=== PATIENT | male | born 1980 | race Caucasian/White ===

== ENCOUNTER 2018-01-28 18:54 | Emergency (ER) | payer SELFPAY ==
[2018-01-28 19:46] LABS: Absolute Lymphocytes (CBC) 3.7 K/uL (0.7-4.9); Basophils % 0.9 % (0-1.3); Eosinophils % 0.3 % (0-4.4); Hematocrit 43.1 % (39.6-49.0); Lymphocytes % 31.1 % (15.3-44.8); MCV 91.7 fL (80-100); MPV 8.7 fL (7.6-11.3); Monocytes % 8.7 % (3.3-12.3)
[2018-01-28 19:50] LABS: Protime INR 1.04
[2018-01-28 20:06] LABS: ALT/SGPT 15 U/L (12-78); AST/SGOT 12 U/L (15-37); Albumin 5.1 g/dL (3.4-5.0); Alkaline Phosphatase 85 U/L (45-117); BUN Blood Urea Nitrogen 13 mg/dL (7-18); Bicarbonate 27 mmol/L (21-32); Bilirubin Direct 0.3 mg/dL (0-0.2); Bilirubin Total 1.1 mg/dL (0.2-1.0); Glucose Level 92 mg/dL (74-106); Potassium 3.2 mmol/L (3.5-5.1); Protein, Total 8.5 g/dL (6.4-8.2); Sodium Level 138 mmol/L (136-145)
[2018-01-29] MEDS ORDERED: POTASSIUM 25 MEQ EFFERV TAB ONE (00:47)
[2018-01-29 00:51] LABS: Barbiturates NEGATIVE (NEGATIVE); Benzodiazepines NEGATIVE (NEGATIVE); Cocaine NEGATIVE (NEGATIVE); METHAMPHETAM POSITIVE (NEGATIVE); Methadone NEGATIVE (NEGATIVE); Opiates NEGATIVE (NEGATIVE); Phencyclidine NEGATIVE (NEGATIVE); THC Cannibis POSITIVE (NEGATIVE)
[2018-01-29 01:03] LABS: Urine Blood NEGATIVE (NEG); Urine Glucose NEGATIVE (NEG); Urine Protein 1+ (NEG); Urine Specific Gravity >1.030 (1.005-1.030)
[2018-01-29 01:03] LABS: Urine Bacteria <20 /HPF (NONE SEEN); Urine Culture Reflex Order REFLEXED; Urine Mucus 1+ /HPF (NONE SEEN); Urine RBC <5 /HPF (NONE SEEN)
--- NOTE | 2018-01-29 03:07 | ER ---
Nurse's Notes [facility] Name: Jose Quinn Age: 37 yrs Sex: Male : 1980 Arrival Date: 01/28/2018 Time: 18:59 Bed 3 Private MD: Diagnosis: Major depressive disorder, recurrent;Suicidal ideations Presentation: 01/28 19:07 Presenting complaint: Patient states: he took 30 Depakote pills at around 1800. pt ak1 stated he lives with his parents, just got out of retirement and missed his [facility] appointment on 01/15 and was not able to have his medications refilled. pt stated he started a new job and could not take off work to go to [facility], pt stated his boss is "strict" and the pt did not wish to ask off to go. pt stated he had a bad day, his parents asked him to leave. Transition of care: patient was not received from another setting of care. Onset of symptoms was January 28, 2018. Risk Assessment: Do you want to hurt yourself or someone else? Patient reports no desire to harm self or others. Initial Sepsis Screen: Does the patient meet any 2 criteria? No. Patient's initial sepsis screen is negative. Does the patient have a suspected source of infection? No. Patient's initial sepsis screen is negative. Care prior to arrival: None. 19:07 Acuity: WANDER 2 ak1 19:07 Method Of Arrival: Ambulatory ak1 Triage Assessment: 19:12 General: Appears in no apparent distress. Behavior is cooperative. Pain: Denies pain. ak1 EENT: No signs and/or symptoms were reported regarding the EENT system. Neuro: Level of Consciousness is awake, alert, obeys commands, Oriented to person, place, time, situation, Stock Preparation Operator are equal bilaterally Moves all extremities. Gait is steady, Speech is normal. Cardiovascular: No deficits noted. Respiratory: No deficits noted. GI: No signs and/or symptoms were reported involving the gastrointestinal system. : No signs and/or symptoms were reported regarding the genitourinary system. Derm: No signs and/or symptoms reported regarding the dermatologic system. Musculoskeletal: No signs and/or symptoms reported regarding the musculoskeletal system. Historical: - Allergies: 19:12 No Known Allergies; ak1 - Home Meds: 19:12 Depakene Oral [Active]; Cymbalta oral oral [Active]; trazodone Oral [Active]; ak1 - PMHx: 19:12 Depression; Bipolar disorder; ak1 - PSHx: 19:12 Cholecystectomy; Eyes; ak1 - Immunization history:: Adult Immunizations unknown. - Social history:: Smoking status: Patient uses tobacco products, smokes one pack cigarettes per day. - Ebola Screening: : No symptoms or risks identified at this time. Screenin:14 Abuse screen: Denies threats or abuse. Denies injuries from another. Nutritional ak1 screening: No deficits noted. Tuberculosis screening: No symptoms or risk factors identified. Fall Risk None identified. Assessment: 19:16 Reassessment: Patient appears in no apparent distress at this time. No changes from ak1 previously documented assessment. see triage assessment. 19:19 Reassessment: poison control contacted. activated charcoal if provider wishes. watch ak1 for drowsiness, N/V, seizures, tachycardia. 4 hours post ingestion levels. file number [id number]. observation for 6 hours. 01/29 00:09 Reassessment: Pt resting with eyes closed, respirations even and unlabored, chest ea expansions even and symmetrical. No s/s of pain or discomfort noted at this time. 01:20 Reassessment: Patient appears in no apparent distress at this time. No changes from ak1 previously documented assessment. 02:28 Reassessment: Patient appears in no apparent distress at this time. No changes from ak1 previously documented assessment. pt resting with eyes closed, resp even and unlabored. [facility] screener contacted to come evaluate pt. 03:10 Reassessment: Patient and/or family updated on plan of care and expected duration. Pain ea level reassessed. Patient is alert, oriented x 3, equal unlabored respirations, skin warm/dry/pink. [facility] leather goods sales representative at bedside. 03:23 Reassessment: Patient and/or family updated on plan of care and expected duration. Pain ea level reassessed. Patient is alert, oriented x 3, equal unlabored respirations, skin warm/dry/pink. Discharge instruction given to patient, verbalized the understanding of instruction. Vital Signs: 01/28 19:06 BP 145 / 115; Pulse 75; Resp 16; Temp 98.3; Pulse Ox 100% on R/A; Weight 77.11 kg (R); ak1 Height 5 ft. 9 in. (175.26 cm) (R); Pain 0/10; 20:21 BP 124 / 90; Pulse 82; Resp 16; Pulse Ox 100% on R/A; ak1 21:22 BP 114 / 82; Pulse 79; Resp 16; Temp 98.4; Pulse Ox 100% on R/A; ak1 22:40 BP 118 / 70; Pulse 79; Resp 18; Pulse Ox 100% ; ea 01/29 00:46 BP 115 / 75; Pulse 66; Resp 16; Pulse Ox 98% on R/A; Pain 0/10; ak1 01:23 BP 107 / 85; Pulse 68; Resp 16; Pulse Ox 98% on R/A; ak1 02:30 BP 112 / 84; Pulse 65; Resp 16; Temp 98.5; Pulse Ox 99% on R/A; Pain 0/10; ak1 01/28 19:06 Body Mass Index 25.10 (77.11 kg, 175.26 cm) [facility] ED Course: 01/28 00:30 Safety Checks: Personal items have been removed. The door is open or patient has been ak1 placed in a hallway bed/chair. There are no family/friend visitors at this time Sitter present at this time. 00:30 Safety Checks: Personal items have been removed. The door is open or patient has been ak1 placed in a hallway bed/chair. There are no family/friend visitors at this time Sitter present at this time. 18:59 Patient arrived in ED. aa5 19:00 Safety Checks: Personal items have been removed. The door is open or patient has been ak1 placed in a hallway bed/chair. There are no family/friend visitors at this time Sitter present at this time. 19:02 Vinicius Guevara MD is Attending Physician. 19:06 Luiza Valenzuela, PREMA is Primary Nurse. ak1 19:06 Arm band placed on. EKG completed in triage. Results shown to MD. ak1 19:10 Triage completed. ak1 19:15 Safety Checks: Personal items have been removed. The door is open or patient has been ak1 placed in a hallway bed/chair. There are no family/friend visitors at this time Sitter present at this time. 19:15 Patient has correct armband on for positive identification. Bed in low position. Call ak1 light in reach. Side rails up X 1. Pulse ox on. NIBP on. 19:15 Inserted saline lock: 20 gauge in right antecubital area, using aseptic technique. ak1 ,using aseptic technique. placed by Aircraft Ordnance Technician Blood collected. 19:30 Safety Checks: Personal items have been removed. The door is open or patient has been ak1 placed in a hallway bed/chair. There are no family/friend visitors at this time Sitter present at this time. 19:45 Safety Checks: Personal items have been removed. The door is open or patient has been ak1 placed in a hallway bed/chair. There are no family/friend visitors at this time Sitter present at this time. 20:00 Safety Checks: Personal items have been removed. The door is open or patient has been ak1 placed in a hallway bed/chair. There are no family/friend visitors at this time Sitter present at this time. 20:15 Safety Checks: Personal items have been removed. The door is open or patient has been ak1 placed in a hallway bed/chair. There are no family/friend visitors at this time Sitter present at this time. 20:30 Safety Checks: Personal items have been removed. The door is open or patient has been ak1 placed in a hallway bed/chair. There are no family/friend visitors at this time Sitter present at this time. 20:45 Safety Checks: Personal items have been removed. The door is open or patient has been ak1 placed in a hallway bed/chair. There are no family/friend visitors at this time Sitter present at this time. 21:00 Safety Checks: Personal items have been removed. The door is open or patient has been ak1 placed in a hallway bed/chair. There are no family/friend visitors at this time Sitter present at this time. 21:15 Safety Checks: Personal items have been removed. The door is open or patient has been ak1 placed in a hallway bed/chair. There are no family/friend visitors at this time Sitter present at this time. 21:15 Safety Checks: Personal items have been removed. The door is open or patient has been ak1 placed in a hallway bed/chair. There are no family/friend visitors at this time Sitter present at this time. 21:30 Safety Checks: Personal items have been removed. The door is open or patient has been ea placed in a hallway bed/chair. There are no family/friend visitors at this time Sitter present at this time. 21:45 Safety Checks: Personal items have been removed. The door is open or patient has been ea placed in a hallway bed/chair. There are no family/friend visitors at this time Sitter present at this time. 22:00 Safety Checks: Personal items have been removed. The door is open or patient has been ea placed in a hallway bed/chair. There are no family/friend visitors at this time Sitter present at this time. 22:15 Safety Checks: Personal items have been removed. The door is open or patient has been ea placed in a hallway bed/chair. There are no family/friend visitors at this time Sitter present at this time. 22:30 Safety Checks: Personal items have been removed. The door is open or patient has been ea placed in a hallway bed/chair. There are no family/friend visitors at this time Sitter present at this time. 22:45 Safety Checks: Personal items have been removed. The door is open or patient has been ak1 placed in a hallway bed/chair. There are no family/friend visitors at this time Sitter present at this time. 23:00 Safety Checks: Personal items have been removed. The door is open or patient has been ak1 placed in a hallway bed/chair. There are no family/friend visitors at this time Sitter present at this time. 23:15 Safety Checks: Personal items have been removed. The door is open or patient has been ak1 placed in a hallway bed/chair. There are no family/friend visitors at this time Sitter present at this time. 23:30 Safety Checks: Personal items have been removed. The door is open or patient has been ak1 placed in a hallway bed/chair. There are no family/friend visitors at this time Sitter present at this time. 23:39 Urine Drug Screen Sent. ds4 23:44 Urine Microscopic Only Sent. ds4 23:44 Urine Dipstick--Ancillary (enter results) Sent. ds4 23:45 Safety Checks: Personal items have been removed. The door is open or patient has been ak1 placed in a hallway bed/chair. There are no family/friend visitors at this time Sitter present at this time. 23:55 Urine Microscopic Only Sent. ds4 23:55 Urine Drug Screen Sent. ds4 01/29 00:00 Safety Checks: Personal items have been removed. The door is open or patient has been ak1 placed in a hallway bed/chair. There are no family/friend visitors at this time Sitter present at this time. 00:15 Safety Checks: Personal items have been removed. The door is open or patient has been ak1 placed in a hallway bed/chair. There are no family/friend visitors at this time Sitter present at this time. 00:30 Safety Checks: Personal items have been removed. The door is open or patient has been ak1 placed in a hallway bed/chair. There are no family/friend visitors at this time Sitter present at this time. 00:45 Safety Checks: Personal items have been removed. The door is open or patient has been ea placed in a hallway bed/chair. There are no family/friend visitors at this time Sitter present at this time. 01:00 Safety Checks: Personal items have been removed. The door is open or patient has been ak1 placed in a hallway bed/chair. There are no family/friend visitors at this time Sitter present at this time. 01:00 Safety Checks: Personal items have been removed. The door is open or patient has been ak1 placed in a hallway bed/chair. There are no family/friend visitors at this time Sitter present at this time. 01:15 Safety Checks: Personal items have been removed. The door is open or patient has been ak1 placed in a hallway bed/chair. There are no family/friend visitors at this time Sitter present at this time. 01:30 Safety Checks: Personal items have been removed. The door is open or patient has been ak1 placed in a hallway bed/chair. There are no family/friend visitors at this time Sitter present at this time. 01:45 Safety Checks: Personal items have been removed. The door is open or patient has been ak1 placed in a hallway bed/chair. There are no family/friend visitors at this time Sitter present at this time. 02:00 Safety Checks: Personal items have been removed. The door is open or patient has been ak1 placed in a hallway bed/chair. There are no family/friend visitors at this time Sitter present at this time. 02:15 Safety Checks: Personal items have been removed. The door is open or patient has been ak1 placed in a hallway bed/chair. There are no family/friend visitors at this time Sitter present at this time. 02:30 Safety Checks: Personal items have been removed. The door is open or patient has been ak1 placed in a hallway bed/chair. There are no family/friend visitors at this time Sitter present at this time. 02:45 Safety Checks: Personal items have been removed. The door is open or patient has been ak1 placed in a hallway bed/chair. There are no family/friend visitors at this time Sitter present at this time. 02:57 Safety Checks: Personal items have been removed. The door is open or patient has been ak1 placed in a hallway bed/chair. A family member and/or friend is present and encouraged to stay. [facility] screener at bedside. Sitter present at this time. 03:25 No provider procedures requiring assistance completed. IV discontinued, intact, ea bleeding controlled, No redness/swelling at site. Pressure dressing applied. Administered Medications: 00:43 Drug: Potassium Effervescent Tablet 25 mEq Route: PO; ak1 00:43 Follow up: Response: No adverse reaction ak1 02:31 Follow up: Response: No adverse reaction ak1 Outcome: 03:07 Discharge ordered by MD. betancourt 03:26 Discharged to home ambulatory. ak1 03:26 Condition: good 03:26 Discharge instructions given to patient, Instructed on discharge instructions, follow up and referral plans. Demonstrated understanding of instructions, follow-up care. 03:27 Patient left the ED. ak1 Signatures: Keren Carbajal RN RN aa5 Michel Morris ds4 Luiza Valenzuela RN RN ak1 Shikha Argueta RN RN ea Starr, Gregory, MD MD gs Corrections: (The following items were deleted from the chart) 00:44 00:00 Safety Checks: Personal items have been removed. The door is open or patient has ak1 been placed in a hallway bed/chair. There are no family/friend visitors at this time Sitter present at this time. ak1 01:16 01:15 Safety Checks: Personal items have been removed. The door is open or patient has ea been placed in a hallway bed/chair. There are no family/friend visitors at this time Sitter present at this time. ea
--- NOTE | 2018-01-29 03:08 | EDPHYS ---
Physician Documentation [facility] Name: Jose Quinn Age: 37 yrs Sex: Male : 1980 Arrival Date: 01/28/2018 Time: 18:59 Bed 3 Private MD: ED Physician Vinicius Guevara HPI: 01/29 00:33 This 37 yrs old Male presents to ER via Ambulatory with complaints of gs suicidal ideation. 00:33 The patient presents to the emergency department with suicide ideation. Onset: The gs symptoms/episode began/occurred acutely. Associated signs and symptoms: Pertinent negatives: abdominal pain, chest pain. Severity of symptoms: At their worst the symptoms were moderate in the emergency department the symptoms are unchanged. The patient has experienced similar episodes in the past, a few times. says ingested 30 depakote tablets. Historical: - Allergies: 01/28 19:12 No Known Allergies; ak1 - Home Meds: 19:12 Depakene Oral [Active]; Cymbalta oral oral [Active]; trazodone Oral [Active]; ak1 - PMHx: 19:12 Depression; Bipolar disorder; ak1 - PSHx: 19:12 Cholecystectomy; Eyes; ak1 - Immunization history:: Adult Immunizations unknown. - Social history:: Smoking status: Patient uses tobacco products, smokes one pack cigarettes per day. - Ebola Screening: : No symptoms or risks identified at this time. ROS: 01/29 00:33 All other systems are negative. gs Exam: 00:33 Head/Face: Normocephalic, atraumatic. Eyes: Pupils equal round and reactive to light, gs extra-ocular motions intact. Lids and lashes normal. Conjunctiva and sclera are non-icteric and not injected. Cornea within normal limits. Periorbital areas with no swelling, redness, or edema. ENT: Nares patent. No nasal discharge, no septal abnormalities noted. Tympanic membranes are normal and external auditory canals are clear. Oropharynx with no redness, swelling, or masses, exudates, or evidence of obstruction, uvula midline. Mucous membranes moist. Neck: Trachea midline, no thyromegaly or masses palpated, and no cervical lymphadenopathy. Supple, full range of motion without nuchal rigidity, or vertebral point tenderness. No Meningismus. Chest/axilla: Normal chest wall appearance and motion. Nontender with no deformity. No lesions are appreciated. Cardiovascular: Regular rate and rhythm with a normal S1 and S2. No gallops, murmurs, or rubs. Normal PMI, no JVD. No pulse deficits. 00:33 Respiratory: Lungs have equal breath sounds bilaterally, clear to auscultation and percussion. No rales, rhonchi or wheezes noted. No increased work of breathing, no retractions or nasal flaring. Abdomen/GI: Soft, non-tender, with normal bowel sounds. No distension or tympany. No guarding or rebound. No evidence of tenderness throughout. Back: No spinal tenderness. No costovertebral tenderness. Full range of motion. Skin: Warm, dry with normal turgor. Normal color with no rashes, no lesions, and no evidence of cellulitis. MS/ Extremity: Pulses equal, no cyanosis. Neurovascular intact. Full, normal range of motion. Neuro: Awake and alert, GCS 15, oriented to person, place, time, and situation. Cranial nerves II-XII grossly intact. Motor strength 5/5 in all extremities. Sensory grossly intact. Cerebellar exam normal. Normal gait. 00:33 Constitutional: The patient appears alert, awake. 00:33 ECG was reviewed by the Attending Physician. 00:33 Psych: Behavior/mood is pleasant, Affect is calm, Oriented to person, place, time, gs Patient having thoughts of suicide. Judgement / Insight is impaired. Delusions/hallucinations are not present. Vital Signs: 01/28 19:06 BP 145 / 115; Pulse 75; Resp 16; Temp 98.3; Pulse Ox 100% on R/A; Weight 77.11 kg (R); ak1 Height 5 ft. 9 in. (175.26 cm) (R); Pain 0/10; 20:21 BP 124 / 90; Pulse 82; Resp 16; Pulse Ox 100% on R/A; ak1 21:22 BP 114 / 82; Pulse 79; Resp 16; Temp 98.4; Pulse Ox 100% on R/A; ak1 22:40 BP 118 / 70; Pulse 79; Resp 18; Pulse Ox 100% ; ea 01/29 00:46 BP 115 / 75; Pulse 66; Resp 16; Pulse Ox 98% on R/A; Pain 0/10; ak1 01:23 BP 107 / 85; Pulse 68; Resp 16; Pulse Ox 98% on R/A; ak1 02:30 BP 112 / 84; Pulse 65; Resp 16; Temp 98.5; Pulse Ox 99% on R/A; Pain 0/10; ak1 01/28 19:06 Body Mass Index 25.10 (77.11 kg, 175.26 cm) [facility] MDM: 01/28 19:26 Patient medically screened. 01/29 00:33 Differential diagnosis: depression, si, drug reaction. Data reviewed: vital signs, nurses notes. Response to treatment: the patient's symptoms have markedly improved after treatment, and as a result, I will discharge patient. 03:06 ED course: crisis over, not suicidal cleared by [facility] will discharge. 01/28 19:26 Order name: Depakote; Complete Time: 00: 01/28 19:26 Order name: Acetaminophen; Complete Time: 00: 01/28 19:26 Order name: Basic Metabolic Panel; Complete Time: 00: 01/28 19:26 Order name: CBC with Diff; Complete Time: 00: 01/28 19:26 Order name: ETOH Level; Complete Time: 00: 01/28 19:26 Order name: Hepatic Function; Complete Time: 00: 01/28 19:26 Order name: PT-INR; Complete Time: 00: 01/28 19:26 Order name: Salicylate; Complete Time: 00: 01/28 19:26 Order name: Urine Drug Screen; Complete Time: 03:07 01/28 19:26 Order name: EKG; Complete Time: : 01/28 23:38 Order name: Urine Microscopic Only; Complete Time: 03:07 [facility] 01/28 23:40 Order name: Urine Dipstick--Ancillary (enter results); Complete Time: 03:07 [facility] 01/29 01:24 Order name: Urine Culture [facility] 01/28 19:26 Order name: EKG - Nurse/Tech; Complete Time: 19:39 01/28 19:26 Order name: IV Saline Lock; Complete Time: 19:39 01/28 19:26 Order name: Labs collected and sent; Complete Time: 19:39 01/28 19:26 Order name: Urine Dipstick-Ancillary (obtain specimen); Complete Time: 23:38 gs EC:33 Rate is 81 beats/min. Rhythm is regular. MS interval is normal. QRS interval is normal. gs T waves are Normal. No ST changes noted. Clinical impression: Normal ECG. Interpreted by me. Administered Medications: 00:43 Drug: Potassium Effervescent Tablet 25 mEq Route: PO; ak1 00:43 Follow up: Response: No adverse reaction ak1 02:31 Follow up: Response: No adverse reaction ak1 Disposition: 01/29/18 03:07 Discharged to Home. Impression: Major depressive disorder, recurrent, Suicidal ideations. - Condition is Stable. - Discharge Instructions: Suicidal Feelings: How to Help Yourself, Major Depressive Disorder, [id number]. - Medication Reconciliation Form, Thank You Letter, Antibiotic Education, Prescription Opioid Use form. - Follow up: Private Physician; When: 2 - 3 days; Reason: Re-evaluation by your physician. Signatures: Dispatcher [employer] Luiza Osborn RN RN ak1 Vinicius Guevara MD MD Corrections: (The following items were deleted from the chart) 03:27 03:07 01/29/2018 03:07 Discharged to Home. Impression: Major depressive disorder, ak1 recurrent; Suicidal ideations. Condition is Stable. Forms are Medication Reconciliation Form, Thank You Letter, Antibiotic Education, Prescription Opioid Use. Follow up: Private Physician; When: 2 - 3 days; Reason: Re-evaluation by your physician. gs
[2018-01-29 03:47] VITALS: BP 112/84; TEMP 98.5; O2SAT 99
--- NOTE | 2018-01-29 07:19 | EKG ---
Test Date: 2018-01-28 Test Time: 19:13:08 Felting Machine Operator: JEREMIAH MEASUREMENT RESULTS: Intervals: Rate: 81 UT: 162 QRSD: 88 QT: 366 QTc: 425 Conger: P: 69 UT: 162 QRS: 15 T: 45 INTERPRETIVE STATEMENTS: Normal sinus rhythm Normal ECG Compared to ECG 11/05/2011 18:29:14 Sinus tachycardia no longer present Electronically Signed On 01-29-18 07:18:21 JIG GRINDER SET UP OPERATOR by Bradley Lagos
== END 2018-01-29 03:27 | disposition home or self-care (01) ==
LOC: ER 18:54
DX: F33.9 Major depressive disorder, recurrent, unspecified (principal); F31.9 Bipolar disorder, unspecified; F17.210 Nicotine dependence, cigarettes, uncomplicated
CPT/HCPCS: 36415; 80048; 80076; 80164; 80307; 80320; 80329; 81003; 81015; 85025; 85610; 87086; 87088; 93005; 99284

== ENCOUNTER 2020-08-15 15:50 | Emergency (ER) | payer SELFPAY ==
--- OUTSIDE RECORDS SUMMARY | 2020-08-15 15:53 | XMS REPORT | Continuity of Care Document ---
:1980 Author Organization [facility] t Address [address] [place] [address] Care Team Providers Name Role Phone Unavailable Unavailable Unavailable Problems This patient has no known problems. Allergies, Adverse Reactions, Alerts This patient has no known allergies or adverse reactions. Medications This patient has no known medications. Procedures This patient has no known procedures. Results Test Description Test Time Test Comments Results Result [facility] e Comments FINGER 1 DIGIT 2018-08-29 [facility] 07:19:[address] [id number] IMAGING REPORTPatient Name: Faizan ALCANTARAte of Service: [id number]: 37 Sex: M Order #: [id number] Room: QERDOB: 1980 X-Ray Number: [id number] Record Number: [id number] Hospital Number: [id number] Physician: Larry CHANDLERing Physician: KATHERINE CARDONA middle finger 3 views 08/29/2018HISTORY: Laceration to the fingerCOMPARISON: NoneThere is laceration to the tip of the middle finger. No retained radiopaqueforeign bodies. Soft tissue swelling is suspected to a mild degree.Bony structures are normal.No other acute findings.IMPRESSION: No acute bony process.The study was performed on an emergent basis and preliminary report faxedto the Emergency Department by the [facility] service nearthe time of the exam.Electronically Signed By: Markos Shearer M.D., 08/29/2018 7:17 AMLeloy authenticated by JESSI SHER 2018-08-29 07:17:21
--- NOTE | 2020-08-15 18:06 | RAD REPORT ---
EXAM DESCRIPTION: RAD - Chest Single View - 08/15/2020 5:59 pm CLINICAL HISTORY: cough, chest pain Chest pain. COMPARISON: ABDOMEN ACUTE SERIES dated 09/01/2013; CHEST PA AND LAT 2 VIEW dated 08/25/2013 FINDINGS: Portable technique limits examination quality. The lungs are grossly clear. The heart is normal in size. No displaced fractures. IMPRESSION: No acute intrathoracic process suspected.
--- NOTE | 2020-08-15 19:09 | EDPHYS ---
Physician Documentation [facility] Name: Jose Quinn Age: 39 yrs Sex: Male : 1980 Arrival Date: 08/15/2020 Time: 16:01 Bed 3 Private MD: ED Physician Ramos Mchugh HPI: 08/15 16:23 This 39 yrs old Male presents to ER via Ambulatory with complaints of Cough, jmm Fever. 16:23 The patient or guardian reports cough. Onset: The symptoms/episode began/occurred jmm gradually, 3 day(s) ago. Modifying factors: The symptoms are alleviated by nothing, the symptoms are aggravated by nothing. Associated signs and symptoms: Pertinent positives: nausea, congestion. It is unknown whether or not the patient has had similar symptoms in the past. This is a 39 year old male with no chronic medical conditions that presents to the ED with complaints of cough, congestion, right sided chest pain with cough. Children have similar symptoms. Patient states having a tmax of 102F yesterday. . Historical: - Allergies: 16:22 No Known Allergies; ca1 - Home Meds: 16:22 Cymbalta Oral [Active]; Trazodone Oral [Active]; ca1 - PMHx: 16:22 Bipolar disorder; Depression; ca1 - PSHx: 16:22 Cholecystectomy; Eyes; ca1 - Immunization history:: Client reports having NOT received the Covid vaccine. Flu vaccine is not up to date. - Social history:: Smoking status: Patient reports the use of cigarette tobacco products, smokes one-half pack cigarettes per day. ROS: 16:23 Constitutional: Positive for fever. jmm 16:23 Respiratory: Positive for cough. 16:23 All other systems are negative. Exam: 16:23 Constitutional: This is a well developed, well nourished patient who is awake, alert, jmm and in no acute distress. Head/Face: atraumatic. Eyes: EOMI, no conjunctival erythema appreciated ENT: Moist Mucus Membranes Neck: Trachea midline, Supple Chest/axilla: Normal chest wall appearance and motion. Cardiovascular: Regular rate and rhythm. No edema appreciated Respiratory: Normal respirations, no respiratory distress appreciated Abdomen/GI: Non distended, soft Back: Normal ROM Skin: General appearance color normal MS/ Extremity: Moves all extremities, no obvious deformities appreciated, no edema noted to the lower extremities Neuro: Awake and alert, normal gait Psych: Behavior is normal, Mood is normal, Patient is cooperative and pleasant Vital Signs: 16:15 BP 113 / 88; Pulse 92; Resp 18 S; Temp 97.5(TE); Pulse Ox 99% on R/A; Weight 81.65 kg ca1 (R); Height 5 ft. 9 in. (175.26 cm) (R); Pain 0/10; 17:05 BP 112 / 88; Pulse 82; Resp 18; Pulse Ox 99% on R/A; ld1 18:06 BP 113 / 97; Pulse 86; Resp 18; Pulse Ox 100% on R/A; ld1 19:20 BP 110 / 88; Pulse 80; Resp 18; Pulse Ox 98% ; ea 16:15 Body Mass Index 26.58 (81.65 kg, 175.26 cm) ca1 MDM: 17:04 Patient medically screened. [facility] 19:08 Data reviewed: vital signs, nurses notes. Data interpreted:. Counseling: I had a jmeleazar detailed discussion with the patient and/or guardian regarding: the historical points, exam findings, and any diagnostic results supporting the discharge/admit diagnosis, lab results, radiology results, the need for outpatient follow up, to return to the emergency department if symptoms worsen or persist or if there are any questions or concerns that arise at home. ED course: Patient is alert and non toxic in appearance in the ED. No signs of resp distress. Patient advised to follow up with pcp and otherwise given strict return precautions. patient understood and agrees with the plan of care. . 08/15 16:23 Order name: Flu; Complete Time: 17:31 ca1 08/15 17:16 Order name: Chest Single View XRAY; Complete Time: 18:11 [facility] 08/15 18:56 Order name: SARS-COV-2 RT PCR; Complete Time: 18:57 EDMS Administered Medications: 19:16 Drug: Decadron (dexamethasone) 10 mg Route: IM; Site: left deltoid; ea 19:29 Follow up: Response: Medication administered at discharge. rr5 Disposition: 08/16 07:28 Co-signature as Attending Physician, Ramos Mchugh MD I agree with the assessment and kdr plan of care. Disposition: 08/15/20 19:09 Discharged to Home. Impression: Acute upper respiratory infection, unspecified. - Condition is Stable. - Discharge Instructions: Upper Respiratory Infection, Adult. - Prescriptions for promethazine- DM - take 5 milliliter by ORAL route every 4 hours; 120 milliliter. Medrol (Max) 4 mg Oral Tablets, Dose Pack - take 1 tablet by ORAL route as directed - follow package instructions; 1 packet. Albuterol Sulfate 90 mcg/actuation - inhale 1-2 puff by INHALATION route every 4-6 hours; 1 Inhaler. - Medication Reconciliation Form, Thank You Letter, Antibiotic Education, Prescription Opioid Use form. - Follow up: Private Physician; When: 2 - 3 days; Reason: Recheck today's complaints, Continuance of care, Re-evaluation by your physician. Signatures: Dispatcher [employer] [facility] Ramos Mchugh MD MD kdr Mickail, Joel, PA PA [facility] Shikha Argueta, RN Brionna Grajeda ea, RN RN ca1 Roque, Raymond RN rr5 Corrections: (The following items were deleted from the chart) 08/15 16:57 16:23 CORONAVIRUS+MR.LAB.BRZ ordered. [facility] 19:30 19:09 08/15/2020 19:09 Discharged to Home. Impression: Acute upper respiratory ea infection, unspecified. Condition is Stable. Forms are Medication Reconciliation Form, Thank You Letter, Antibiotic Education, Prescription Opioid Use. Follow up: Private Physician; When: 2 - 3 days; Reason: Recheck today's complaints, Continuance of care, Re-evaluation by your physician. [facility]
--- NOTE | 2020-08-15 19:09 | ER ---
Nurse's Notes [facility] Name: Jose Quinn Age: 39 yrs Sex: Male : 1980 Arrival Date: 08/15/2020 Time: 16:01 Bed 3 Private MD: Diagnosis: Acute upper respiratory infection, unspecified Presentation: 08/15 16:15 Chief complaint: Patient states: cough and congestion since 08/10/2020. Getting worse. ca1 Fever since last night. Coronavirus screen: Client denies travel out of the [place] in the last 14 days. congestion, cough unrelated to allergies, fever, Client presents with at least one sign or symptom that may indicate coronavirus-19. Standard/surgical mask placed on the client. Provider contacted for isolation considerations. Ebola Screen: Patient negative for fever greater than or equal to 101.5 degrees Fahrenheit, and additional compatible Ebola Virus Disease symptoms Patient denies exposure to infectious person. Patient denies travel to an Ebola-affected area in the 21 days before illness onset. No symptoms or risks identified at this time. Initial Sepsis Screen: Does the patient meet any 2 criteria? No. Patient's initial sepsis screen is negative. Does the patient have a suspected source of infection? No. Patient's initial sepsis screen is negative. Risk Assessment: Do you want to hurt yourself or someone else? Patient reports no desire to harm self or others. Onset of symptoms was August 10, 2020. 16:15 Method Of Arrival: Ambulatory ca1 16:15 Acuity: WANDER 4 ca1 Historical: - Allergies: 16:22 No Known Allergies; ca1 - Home Meds: 16:22 Cymbalta Oral [Active]; Trazodone Oral [Active]; ca1 - PMHx: 16:22 Bipolar disorder; Depression; ca1 - PSHx: 16:22 Cholecystectomy; Eyes; ca1 - Immunization history:: Client reports having NOT received the Covid vaccine. Flu vaccine is not up to date. - Social history:: Smoking status: Patient reports the use of cigarette tobacco products, smokes one-half pack cigarettes per day. Screenin:05 Abuse screen: Denies threats or abuse. Denies injuries from another. Nutritional ld1 screening: No deficits noted. Tuberculosis screening: No symptoms or risk factors identified. Fall Risk None identified. Assessment: 17:05 General: Appears in no apparent distress. comfortable, Behavior is calm, cooperative, ld1 appropriate for age. Pain: Denies pain. Neuro: Level of Consciousness is awake, alert, obeys commands, Oriented to person, place, time, situation, Appropriate for age. Cardiovascular: Capillary refill < 3 seconds Patient's skin is warm and dry. Respiratory: Airway is patent Respiratory effort is even, unlabored, Respiratory pattern is regular, symmetrical. GI: Abdomen is flat, non-distended, Reports diarrhea, nausea, vomiting. : No signs and/or symptoms were reported regarding the genitourinary system. EENT: No signs and/or symptoms were reported regarding the EENT system. Derm: No signs and/or symptoms reported regarding the dermatologic system. Musculoskeletal: No signs and/or symptoms reported regarding the musculoskeletal system. 18:06 Reassessment: Patient appears in no apparent distress at this time. No changes from ld1 previously documented assessment. 19:28 Reassessment: Patient and/or family updated on plan of care and expected duration. Pain ea level reassessed. Patient is alert, oriented x 3, equal unlabored respirations, skin warm/dry/pink. Patient states feeling better. Vital Signs: 16:15 BP 113 / 88; Pulse 92; Resp 18 S; Temp 97.5(TE); Pulse Ox 99% on R/A; Weight 81.65 kg ca1 (R); Height 5 ft. 9 in. (175.26 cm) (R); Pain 0/10; 17:05 BP 112 / 88; Pulse 82; Resp 18; Pulse Ox 99% on R/A; ld1 18:06 BP 113 / 97; Pulse 86; Resp 18; Pulse Ox 100% on R/A; ld1 19:20 BP 110 / 88; Pulse 80; Resp 18; Pulse Ox 98% ; ea 16:15 Body Mass Index 26.58 (81.65 kg, 175.26 cm) ca1 ED Course: 16:01 Patient arrived in ED. as 16:17 Triage completed. ca1 16:22 Arm band placed on right wrist. ca1 17:01 Minesh Singer PA is PHCP. [facility] 17:01 Ramos Mchugh MD is Attending Physician. [facility] 17:01 Ladonna Salas RN is Primary Nurse. ld1 17:05 Patient has correct armband on for positive identification. Bed in low position. Call ld1 light in reach. Side rails up X2. Pulse ox on. NIBP on. Door closed. Noise minimized. Warm blanket given. 17:05 No provider procedures requiring assistance completed. ld1 17:59 Chest Single View XRAY In Process Unspecified. EDMS 19:29 IV discontinued. rr5 Administered Medications: 19:16 Drug: Decadron (dexamethasone) 10 mg Route: IM; Site: left deltoid; ea 19:29 Follow up: Response: Medication administered at discharge. rr5 Outcome: 19:09 Discharge ordered by . hilary 19:29 Discharged to home ambulatory. ea 19:29 Condition: stable 19:29 Discharge instructions given to patient, Instructed on discharge instructions, follow up and referral plans. medication usage, Demonstrated understanding of instructions, follow-up care, medications, Prescriptions given X 3. 19:29 Discharged to home ambulatory. rr5 19:29 Condition: stable 19:30 Patient left the ED. ea Signatures: Dispatcher [employer] EDMS Minesh Singer PA PA jmm Martinez, Amelia as Antunez, Elena, RN RN Ravinder Ash, PREMA RN rr5 Brionna Cardona RN RN ca1 Ladonna Salas RN RN ld1
[2020-08-15] MEDS ORDERED: dexAMETHasone 4 MG/ML VIAL ONE (19:31)
[2020-08-15 19:46] VITALS: TEMP 97.5
[2020-08-15 19:51] VITALS: BP 110/88; O2SAT 98
== END 2020-08-15 19:30 | disposition home or self-care (01) ==
LOC: ER 15:50
DX: J06.9 Acute upper respiratory infection, unspecified (principal); F31.9 Bipolar disorder, unspecified; F17.210 Nicotine dependence, cigarettes, uncomplicated; Z20.822 Contact with and (suspected) exposure to COVID-19
CPT/HCPCS: 71045; 87804; J1100; U0003

== ENCOUNTER 2021-08-11 14:09 | Emergency (ER) | payer SELFPAY ==
--- OUTSIDE RECORDS SUMMARY | 2021-08-11 14:14 | XMS REPORT | Continuity of Care Document ---
:1980 Author Organization [facility] t Address [address] [place] [address] Care Team Providers Name Role Phone Unavailable Unavailable Unavailable Problems This patient has no known problems. Allergies, Adverse Reactions, Alerts This patient has no known allergies or adverse reactions. Medications This patient has no known medications. Procedures This patient has no known procedures. Results Test Description Test Time Test Comments Results Result [facility] e Comments FINGER 1 DIGIT 2018-08-29 [facility] 07:19:[address] [id number] IMAGING REPORTPatient Name: Faizan ALCANTARAte of Service: [id number]: 37 Sex: M Order #: [id number] Room: QERDOB: 1980 X-Ray Number: [id number] Record Number: [id number] Hospital Number: [id number] Physician: Larry CHANDLERing Physician: KATHERINE CARDONA middle [...]
[2021-08-11] MEDS ORDERED: HYDROCODONE/APAP 7.5/325 MG TAB ONE (14:59)
[2021-08-11] MEDS ORDERED: LIDOCAINE 1% W/EPI 1:100,000 MDV 20 ML VIAL ONE (14:59)
--- NOTE | 2021-08-11 15:24 | RAD REPORT ---
EXAM DESCRIPTION: CT - Facial Bones W/ Mpr - 08/11/2021 3:07 pm CLINICAL HISTORY: Facial injury with pain COMPARISON: None TECHNIQUE: Computed axial tomography of the face was obtained. Coronal and sagittal reconstruction w as performed. All CT scans are performed using dose optimization technique as appropriate and may include automated exposure control or mA/KV adjustment according to patient size. FINDINGS: Laceration upper lip. Comminuted mildly displaced nasal bone fracture. A TMJ dislocation is not noted. The globes are intact. Fluid within the sinuses is not seen. IMPRESSION: Comminuted mildly displaced nasal bone fracture
[2021-08-11] MEDS ORDERED: LIDOCAINE 1% MPF 5 ML VIAL ONE (16:11)
--- NOTE | 2021-08-11 16:59 | ER ---
Nurse's Notes [facility] Name: Jose Quinn Age: 40 yrs Sex: Male : 1980 Arrival Date: 08/11/2021 Time: 14:11 Bed 14 Private MD: Diagnosis: Fracture of nasal bones;nasal laceration;lip laceration Presentation: 08/11 14:15 Chief complaint: Patient states: was using an air john to lift a house, there was a 4X6 iw block of wood between the john and house , the john tilted and block came out and hit him in the face , laceration across nose and across top lip, bleeding to nose, denies LOC , no other injuries noted. Care prior to arrival: None. 14:15 Acuity: WANDER 3 iw 14:15 Method Of Arrival: Ambulatory iw 14:41 Coronavirus screen: At this time, the client does not indicate any symptoms associated jd3 with coronavirus-19. Ebola Screen: No symptoms or risks identified at this time. Initial Sepsis Screen: Does the patient meet any 2 criteria? No. Patient's initial sepsis screen is negative. Does the patient have a suspected source of infection? No. Patient's initial sepsis screen is negative. Risk Assessment: Do you want to hurt yourself or someone else? Patient reports no desire to harm self or others. Onset of symptoms was August 11, 2021. Historical: - Allergies: 14:17 No Known Allergies; iw - Home Meds: 14:17 None [Active]; iw - PMHx: 14:17 Bipolar disorder; Depression; iw - Immunization history:: Adult Immunizations up to date. - Social history:: Smoking status: unknown. Screenin:41 Abuse screen: Denies threats or abuse. Nutritional screening: No deficits noted. jd3 Tuberculosis screening: No symptoms or risk factors identified. Fall Risk None identified. Assessment: 14:39 General: Appears in no apparent distress. comfortable, Behavior is calm, cooperative, jd3 appropriate for age. Pain: Complains of pain in right side of head Quality of pain is described as sharp, tender. Neuro: Fry Agitation-Sedation Scale (RASS): 0 - Alert and Calm Level of Consciousness is awake, alert, obeys commands, Oriented to person, place, time, situation, Moves all extremities. Full function Gait is steady, Speech is normal, Pupils are PERRLA. Cardiovascular: Denies chest pain, Capillary refill < 3 seconds Patient's skin is warm and dry. Respiratory: Airway is patent Respiratory effort is even, unlabored, Respiratory pattern is regular, symmetrical, Denies cough, shortness of breath. GI: No signs and/or symptoms were reported involving the gastrointestinal system. : No signs and/or symptoms were reported regarding the genitourinary system. EENT: No signs and/or symptoms were reported regarding the EENT system. Derm: Skin is intact, Skin is dry, Skin is normal, Skin temperature is warm. Musculoskeletal: Circulation, motion, and sensation intact. Range of motion: intact in all extremities. Injury Description: Laceration sustained to apex of the nose and upper lip is 2.6 to 7.5 cm long, not bleeding. 15:46 Reassessment: Patient appears in no apparent distress at this time. Patient and/or jd3 family updated on plan of care and expected duration. Pain level reassessed. Patient is alert, oriented x 3, equal unlabored respirations, skin warm/dry/pink. 17:13 Reassessment: Patient appears in no apparent distress at this time. Patient and/or jd3 family updated on plan of care and expected duration. Pain level reassessed. Patient is alert, oriented x 3, equal unlabored respirations, skin warm/dry/pink. Patient states feeling better. Vital Signs: 14:18 BP 119 / 100; Pulse 100; Resp 16; Temp 98.5; Pulse Ox 100% on R/A; Weight 77.11 kg; iw Height 5 ft. 9 in. (175.26 cm); Pain 8/10; 17:14 BP 119 / 91; Pulse 76; Resp 17 S; Pulse Ox 100% on R/A; jd3 14:18 Body Mass Index 25.10 (77.11 kg, 175.26 cm) iw Raffi Coma Score: 14:48 Eye Response: spontaneous(4). Verbal Response: oriented(5). Motor Response: obeys en commands(6). Total: 15. ED Course: 14:11 Patient arrived in ED. jj6 14:15 Everett Liang, PREMA is Primary Nurse. jd3 14:17 Triage completed. iw 14:17 Arm band placed on. iw 14:26 Anabela Guerrero PA is PHCP. en 14:26 Ramos Mchugh MD is Attending Physician. en 14:40 Warm blanket given. jd3 14:42 Patient has correct armband on for positive identification. Bed in low position. Call jd3 light in reach. Side rails up X 1. Pulse ox on. NIBP on. 15:09 CT Facial Bones W/O Con In Process Unspecified. EDMS 16:22 Assist provider with laceration repair on nose and upper lip that was between 2.6 to jd3 7.5 cm using sutures. Set up tray. Performed by Anabela PRIEST Patient tolerated well. 16:57 Gerry Gregorio MD is Referral Physician. en 17:13 Patient did not have IV access during this emergency room visit. jd3 Administered Medications: 14:56 Drug: [place] (HYDROcodone-acetaminophen) (7.5 mg-325 mg) 1 tabs Route: PO; jd3 15:50 Follow up: Response: No adverse reaction; RASS: Alert and Calm (0) jd3 14:56 Drug: Lidocaine-Epinephrine -1%: (1:100,000) 20 ml {Note: at bedside per provider's jd3 order..} Volume: 20 ml; Route: Infiltration; 15:50 Follow up: Response: No adverse reaction jd3 17:06 Drug: KeFLEX (cephalexin) 500 mg Route: PO; jd3 17:15 Follow up: Response: No adverse reaction; Medication administered at discharge. jd3 Medication: 14:41 VIS not applicable for this client. jd3 Outcome: 16:58 Discharge ordered by MD. en 17:13 Discharged to home ambulatory, with family. jd3 17:13 Condition: stable 17:13 Discharge instructions given to patient, Instructed on discharge instructions, follow up and referral plans. medication usage, Demonstrated understanding of instructions, follow-up care, medications, Prescriptions given X 2. 17:16 Patient left the ED. jd3 Signatures: Dispatcher [employer] EDMS Verna Jama, Everett Harris RN, RN RN jOlga Lidia Sánchez jj6 Anabela Guerrero PA PA en Corrections: (The following items were deleted from the chart) 14:22 14:15 Chief complaint: Patient states: was using an air john to lift a house, there was iw a 4X6 block of wood between the john and house , the john tilted and block came out and hit him in the face , laceration across nose , bleeding to nose, denies LOC , no other injuries noted iw 17:15 17:14 Response: No adverse reaction; RASS: Alert and Calm (0) jd3 jd3 17:15 17:15 Response: No adverse reaction; RASS: Alert and Calm (0) jd3 jd3
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
[2021-08-11] MEDS ORDERED: CEPHALEXIN 250 MG CAP ONE (17:10)
[2021-08-11 17:42] VITALS: TEMP 98.5; O2SAT 100
[2021-08-11 17:43] VITALS: BP 119/91
== END 2021-08-11 17:16 | disposition home or self-care (01) ==
LOC: ER 14:09
PROC: 0JQ10ZZ Repair Face Subcutaneous Tissue and Fascia, Open Approach (ICD-10-PCS; principal; 2021-08-11)
DX: S02.2XXA Fracture of nasal bones, initial encounter for closed fracture (principal); S01.511A Laceration without foreign body of lip, initial encounter; S01.21XA Laceration without foreign body of nose, initial encounter; F31.9 Bipolar disorder, unspecified
CPT/HCPCS: 70486; 76377; 99284

== ENCOUNTER 2022-10-12 16:27 | Emergency (ER) | payer SELFPAY ==
--- OUTSIDE RECORDS SUMMARY | 2022-10-12 16:29 | XMS REPORT | Continuity of Care Document ---
:1980 Author Organization [facility] t Address [address] [facility] [address] [place] [address] Care Team Providers Name Role Phone Unavailable Unavailable Unavailable Problems This patient has no known problems. Allergies, Adverse Reactions, Alerts This patient has no known allergies or adverse reactions. Medications This patient has no known medications. Procedures This patient has no known procedures. Results Test Description Test Time Test Comments Results Result [facility] e Comments FINGER 1 DIGIT 2018-08-29 [facility] 07:19:[address] [id number] IMAGING REPORTPatient Name: Faizan ALCANTARAte of Service: [id number]: 37 Sex: M Order #: [id number] Room: QERDOB: 1980 X-Ray Number: [id number] Record Number: [id number] Hospital Number: [id number] Physician: Margarito CHANDLER Physician: KATHERINE CARDONA middle finger 3 views [...] Signed By: Markos Shearer M.D., 08/29/2018 7:17 AMLegally authenticated by JESSI SHER 2018-08-29 07:17:21
--- NOTE | 2022-10-12 16:47 | EDPHYS ---
Physician Documentation [facility] Name: Jose Quinn Age: 42 yrs Sex: Male : 1980 Arrival Date: 10/12/2022 Time: 16:27 Bed Waiting Private MD: ED Physician Ramos Mchugh HPI: 10/12 18:07 This 42 yrs old Male presents to ER via Ambulatory with complaints of Toe Pain. kb 18:07 The patient presents with discoloration. The complaints affect the lateral side of left kb foot. Context: The problem was sustained at home, resulted from an unknown cause, the patient can fully bear weight, the patient is able to ambulate. Onset: The symptoms/episode began/occurred today. Modifying factors: The symptoms are alleviated by nothing, the symptoms are aggravated by nothing. Associated signs and symptoms: The patient has no apparent associated signs or symptoms. Severity of symptoms: At their worst the symptoms were mild, in the emergency department the symptoms are unchanged. The patient has not experienced similar symptoms in the past. The patient has not recently seen a physician. Pt states he had just stepped into the shower and noticed red and blue discoloration to his foot so he came in to get it checked out. Pt denies injury, trauma and pain. Historical: - Allergies: 16:50 No Known Allergies; jl7 - Home Meds: 16:50 None [Active]; jl7 - PMHx: 16:50 Bipolar disorder; Depression; jl7 - PSHx: 16:50 None; jl7 - Immunization history:: Adult Immunizations unknown. - Social history:: Smoking status: Patient reports the use of cigarette tobacco products, smokes one pack cigarettes per day. ROS: 18:06 Constitutional: Negative for fever, chills, and weight loss. kb 18:06 Skin: Positive for of the lateral side of left foot, discoloration. 18:06 All other systems are negative. Exam: 18:06 Constitutional: This is a well developed, well nourished patient who is awake, alert, kb and in no acute distress. Head/Face: Normocephalic, atraumatic. ENT: Moist Mucous membranes Cardiovascular: Regular rate and rhythm with a normal S1 and S2. No gallops, murmurs, or rubs. No pulse deficits. Respiratory: Respirations even and unlabored. No increased work of breathing. Talking in full sentences Skin: Warm, dry with normal turgor. Normal color. MS/ Extremity: Pulses equal, no cyanosis. Neurovascular intact. Full, normal range of motion. Neuro: Awake and alert, GCS 15, oriented to person, place, time, and situation. Moves all extremities. Normal gait. Vital Signs: 16:40 BP 134 / 99; Pulse 101; Resp 15; Temp 97.9; Pulse Ox 100% ; Pain 0/10; jl7 16:40 Pain Scale: Adult jl7 MDM: 16:46 Patient medically screened. kb 18:06 Differential diagnosis: dvt, fracture, sprain. Data reviewed: vital signs, nurses kb notes. Test considered but Not performed: Ultrasound US considered for discoloration, but I was able to remove discoloration with alcohol swab. Counseling: I had a detailed discussion with the patient and/or guardian regarding: the historical points, exam findings, and any diagnostic results supporting the discharge/admit diagnosis, the need for outpatient follow up, a family practitioner, to return to the emergency department if symptoms worsen or persist or if there are any questions or concerns that arise at home. Administered Medications: No medications were administered Disposition Summary: 10/12/22 16:46 Discharge Ordered Location: Home kb Condition: Stable kb Diagnosis - Person with feared health complaint in whom no diagnosis is made kb Followup: kb - With: Emergency Department - When: As needed - Reason: Worsening of condition Followup: kb - With: Private Physician - When: 2 - 3 days - Reason: Recheck today's complaints, Continuance of care, Re-evaluation by your physician Forms: - Medication Reconciliation Form kb - Thank You Letter kb - Antibiotic Education kb - Prescription Opioid Use kb - Patient Portal Instructions kb - Leadership Thank You Letter kb Signatures: Joanna Zhou, FLORENCE MENDOSA-Saloni Stinson, RN RN jl7
--- NOTE | 2022-10-12 16:53 | ER ---
Nurse's Notes [facility] Name: Jose Quinn Age: 42 yrs Sex: Male : 1980 Arrival Date: 10/12/2022 Time: 16:27 Bed Waiting Private MD: Diagnosis: Person with feared health complaint in whom no diagnosis is made Presentation: 10/12 16:40 Chief complaint: Patient states: Noticed lateral aspect of left foot is blue after jl7 shower last night. 16:40 Coronavirus screen: At this time, the client does not indicate any symptoms associated jl7 with coronavirus-19. Ebola Screen: No symptoms or risks identified at this time. Initial Sepsis Screen: Does the patient meet any 2 criteria? No. Patient's initial sepsis screen is negative. Does the patient have a suspected source of infection? No. Patient's initial sepsis screen is negative. Risk Assessment: Do you want to hurt yourself or someone else? Patient reports no desire to harm self or others. Onset of symptoms was October 11, 2022. 16:40 Method Of Arrival: Ambulatory jl7 16:40 Acuity: WANDER 4 jl7 Triage Assessment: 16:35 General: Appears in no apparent distress. uncomfortable, Behavior is calm, cooperative, jl7 appropriate for age. Pain: Denies pain. Neuro: Level of Consciousness is awake, alert, obeys commands, Oriented to person, place, time, situation. Historical: - Allergies: 16:50 No Known Allergies; jl7 - Home Meds: 16:50 None [Active]; jl7 - PMHx: 16:50 Bipolar disorder; Depression; jl7 - PSHx: 16:50 None; jl7 - Immunization history:: Adult Immunizations unknown. - Social history:: Smoking status: Patient reports the use of cigarette tobacco products, smokes one pack cigarettes per day. Screenin:45 [facility] ED Fall Risk Assessment (Adult) Score/Fall Risk Level 0 - 2 = Low Risk jl7 Oriented to surroundings. Abuse screen: Denies threats or abuse. Denies injuries from another. Nutritional screening: No deficits noted. Tuberculosis screening: No symptoms or risk factors identified. Assessment: 16:45 Reassessment: RUBY Marshall in triage assessing pt, washed pt's feet with chlorhexidine jl7 and blue and red coloring came off. Vital Signs: 16:40 BP 134 / 99; Pulse 101; Resp 15; Temp 97.9; Pulse Ox 100% ; Pain 0/10; jl7 16:40 Pain Scale: Adult jl7 ED Course: 16:28 Patient arrived in ED. rg4 16:34 Joanna Zhou FNP-C is [facility]. kb 16:34 Ramos Mchugh MD is Attending Physician. kb 16:35 Arm band placed on right wrist. jl7 16:45 Patient has correct armband on for positive identification. Provided Education on: . jl7 16:50 Triage completed. jl7 16:52 No provider procedures requiring assistance completed. Patient did not have IV access jl7 during this emergency room visit. Administered Medications: No medications were administered Medication: 16:45 VIS not applicable for this client. jl7 Outcome: 16:46 Discharge ordered by . kb 16:52 Discharged to home ambulatory. jl7 16:52 Condition: stable 16:52 Discharge instructions given to patient, family, Instructed on discharge instructions, follow up and referral plans. Demonstrated understanding of instructions, follow-up care. 16:53 Patient left the ED. jl7 Signatures: Joanna Zhou FNP-C FNP-Alexandria Gutierrez rg4 Saloni Langford, RN RN jl7
[2022-10-12 17:04] VITALS: BP 134/99; TEMP 97.9; O2SAT 100
== END 2022-10-12 16:53 | disposition home or self-care (01) ==
LOC: ER 16:27
DX: Z71.1 Person with feared health complaint in whom no diagnosis is made (principal)
CPT/HCPCS: 99282

== ENCOUNTER 2023-11-07 02:46 | Emergency (ER) | payer OTHER, SELFPAY ==
--- OUTSIDE RECORDS SUMMARY | 2023-11-07 02:49 | XMS REPORT | Continuity of Care Document ---
Author Name Unknown Address [address] [place] [address] th[address] Address [address] 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 Name Role Phone Unavailable Unavailable Unavailable Results Test Description Test Time Test Comments Results Resul t Comments Source FINGER 1 DIGIT 2018-08-29 07:19:[address] [id number] IMAGING REPORTPatient Name: Faizan ALCANTARAte of Service: [id number]: [id number] Sex: M Order #: [id number] Room: QERDOB: 1980 X-Ray Number: [id number] Record Number: [id number] Hospital Number: [id number] Physician: Margarito CHANDLER Physician: KATHERINE CARDONA middle [...] report faxedto the Emergency Department by the [facility] Radiology [facility] service nearthe time of the exam.Electronically Signed By: Markos Shearer M.D., 08/29/2018 7:17 AMLegally authenticated by JESSI SHER 2018-08-29 07:17:21
[2023-11-07 03:22] LABS: Absolute Basophils 0.1 K/uL (0-0.5); Absolute Eosinophils 0.2 K/uL (0-0.5); Absolute Lymphocytes (CBC) 3.6 K/uL (0.7-4.9); Absolute Monocytes 0.7 K/uL (0.1-1.3); Absolute Neutrophil 2.2 K/uL (1.8-8.0); Basophils % 0.9 % (0-1.3); Eosinophils % 2.6 % (0-4.4); Hematocrit 40.4 % (39.6-49.0); Lymphocytes % 53.8 % (15.3-44.8); MCH 30.7 pg (27.0-35.0); MCHC 34.5 g/dL (32.0-36.0); MPV 7.5 fL (7.6-11.3); Monocytes % 10.3 % (3.3-12.3); Neutrophils % 32.4 % (41.7-73.7); Nucleated Red Blood Cells % 0.1 % (0-0); Platelets 286 thou/uL (152-406); RBC Red Blood Cell Count 4.55 M/uL (4.33-5.43); Red Cell Distribution Width 13.1 % (12.1-15.2)
[2023-11-07 03:33] LABS: Barbiturates NEGATIVE (NEGATIVE); Benzodiazepines NEGATIVE (NEGATIVE); Cocaine NEGATIVE (NEGATIVE); METHAMPHETAM POSITIVE (NEGATIVE); Methadone NEGATIVE (NEGATIVE); Opiates NEGATIVE (NEGATIVE); Phencyclidine NEGATIVE (NEGATIVE); THC Cannibis NEGATIVE (NEGATIVE)
[2023-11-07 03:35] LABS: PT Prothrombin Time 11.3 SECONDS (9.4-12.5); Protime INR 1.01
[2023-11-07 03:41] LABS: ALT/SGPT 15 U/L (16-61); Albumin 3.9 g/dL (3.4-5.0); Albumin/Globulin Ratio 1.3 (1.1-1.8); Alkaline Phosphatase 65 U/L (45-117); Anion Gap 10.2 mEq/L (5.0-15.0); BUN Blood Urea Nitrogen 10 mg/dL (7-18); Bicarbonate 26 mEq/L (21-32); Bilirubin Direct 0.2 mg/dL (0-0.2); Bilirubin Indirect, Calculated 0.6 mg/dL (0.2-0.8); Bilirubin Total 0.8 mg/dL (0.2-1.0); Glomerular Filtration Rate 79 ml/min (=/>90); Glucose Level 152 mg/dL (74-106); Magnesium 1.8 mg/dL (1.6-2.4); NT PRO-BNP 18 pg/mL (<125); Potassium 3.2 mEq/L (3.5-5.1); Protein, Total 6.9 g/dL (6.4-8.2); Sodium Level 138 mEq/L (136-145)
[2023-11-07 03:42] LABS: AST/SGOT < 10 U/L (15-37); Troponin High Sensitivity < 3.0 pg/mL (<58.9)
--- NOTE | 2023-11-07 04:03 | ER ---
Nurse's Notes [facility] Name: Jose Quinn Age: 43 yrs Sex: Male : 1980 Arrival Date: 11/07/2023 Time: 02:46 Bed 7 Private MD: Diagnosis: Acute Chest Discomfort , Methamphetamine Use Disoder Presentation: 11/06 02:54 Chief complaint: Patient states: L sided chest discomfort described as "muscle spasm" ss that began yesterday. Coronavirus screen: Client denies travel out of the [place] in the last 14 days. Ebola Screen: Patient denies exposure to infectious person. Patient denies travel to an Ebola-affected area in the 21 days before illness onset. Initial Sepsis Screen: Does the patient meet any 2 criteria? No. Patient's initial sepsis screen is negative. Does the patient have a suspected source of infection? No. Patient's initial sepsis screen is negative. Risk Assessment: Do you want to hurt yourself or someone else? Patient reports no desire to harm self or others. Onset of symptoms was November 06, 2023. 02:54 Method Of Arrival: Ambulatory ss 02:54 Acuity: WANDER 3 ss Triage Assessment: 04:07 General: Appears in no apparent distress. uncomfortable, slender, Behavior is vc1 cooperative. Pain: Denies pain. EENT: No deficits noted. No signs and/or symptoms were reported regarding the EENT system. Neuro: Level of Consciousness is awake, alert, obeys commands, Oriented to person, place, time, situation, Appropriate for age. Cardiovascular: Denies chest pain, Capillary refill < 3 seconds Patient's skin is warm and dry. Respiratory: Airway is patent Respiratory effort is even, unlabored, Respiratory pattern is regular, symmetrical, Breath sounds are clear. Derm: Skin is intact, is healthy with good turgor, Skin is dry, Skin is normal, Skin temperature is warm. Historical: - Allergies: 02:56 No Known Allergies; ss - Home Meds: 02:56 None [Active]; ss - PMHx: 02:56 Bipolar disorder; Depression; ss - PSHx: 02:56 Cholecystectomy; L arm; ss - Immunization history:: Adult Immunizations unknown. - Infectious Disease History:: Denies. - Social history:: Smoking status: Patient reports the use of cigarette tobacco products, smokes one pack cigarettes per day. - Family history:: not pertinent. Screenin:16 [facility] ED Fall Risk Assessment (Adult) History of falling in the last 3 months, kd4 including since admission No falls in past 3 months (0 pts) Confusion or Disorientation No (0 pts) Intoxicated or Sedated No (0 pts) Impaired Gait No (0 pts) Mobility Assist Device Used No (0 pt) Altered Elimination No (0 pt) Score/Fall Risk Level 0 - 2 = Low Risk Oriented to surroundings, Maintained a safe environment. Abuse screen: Denies threats or abuse. Nutritional screening: No deficits noted. Tuberculosis screening: No symptoms or risk factors identified. Assessment: 03:16 Pain: Denies pain. Pain does not radiate. Pain began 4 hours ago. Cardiovascular: kd4 Reports chest tightness, denies pain Denies chest pain, nausea, shortness of breath. 03:59 Reassessment: Patient appears in no apparent distress at this time. No changes from vc1 previously documented assessment. Patient and/or family updated on plan of care and expected duration. Pain level reassessed. Patient is alert, oriented x 3, equal unlabored respirations, skin warm/dry/pink. Vital Signs: 02:54 BP 143 / 100; Pulse 86; Resp 17; Temp 97.8(TE); Pulse Ox 100% on R/A; Weight 77.11 kg; ss Height 5 ft. 9 in. ; Pain 0/10; 03:53 BP 118 / 94; Pulse 83; Resp 17; Pulse Ox 99% ; vc1 02:54 Body Mass Index 25.10 (77.11 kg, 175.26 cm) ss 02:54 Pain Scale: Adult ss Raffi Coma Score: 03:16 Eye Response: spontaneous(4). Motor Response: obeys commands(6). Verbal Response: kd4 oriented(5). Total: 15. 03:18 Eye Response: spontaneous(4). Motor Response: obeys commands(6). Verbal Response: sp4 oriented(5). Total: 15. ED Course: 02:47 Patient arrived in ED. jj6 02:49 Mc Monroy MD is Attending Physician. sp4 02:56 Triage completed. ss 02:56 Arm band placed on right wrist. ss 03:16 Patient has correct armband on for positive identification. Placed in gown. Bed in low kd4 position. Call light in reach. Client placed on continuous cardiac and pulse oximetry monitoring. NIBP monitoring applied. dog pound attendant on. Pulse ox on. NIBP on. 03:16 Initial lab(s) drawn, by me, sent to lab. Urine collected: clean catch specimen, clear, kd4 EKG done. Inserted saline lock: 20 gauge in right antecubital area, using aseptic technique. Patient maintains SpO2 saturation greater than 95% on room air. 03:22 Goldie Rosen, RN is Primary Nurse. vc1 03:32 XRAY Chest (1 view) In Process Unspecified. EDMS 03:59 No provider procedures requiring assistance completed. vc1 04:08 IV discontinued, intact, bleeding controlled, No redness/swelling at site. Pressure vc1 dressing applied. 04:09 Provided Education on: EFFECTS OF METHAMPHETAMINES. vc1 Administered Medications: No medications were administered Medication: 03:16 VIS not applicable for this client. kd4 Outcome: 04:03 Discharge ordered by . betty 04:08 Discharged to home ambulatory, vc1 04:08 Condition: good 04:08 Discharge instructions given to patient, Instructed on discharge instructions, follow up and referral plans. Demonstrated understanding of instructions, follow-up care, 04:09 Patient left the ED. vc1 Signatures: Dispatcher [employer] EDMS Jo-Ann Neville, RN RN Olga Lidia Stephenson jj6 Goldie Rosen RN RN vc1 Mc Monroy MD MD sp4 Mamta Wang RN RN kd4
--- NOTE | 2023-11-07 04:03 | EDPHYS ---
Physician Documentation [facility] Name: Jose Quinn Age: 43 yrs Sex: Male : 1980 Arrival Date: 11/07/2023 Time: 02:46 Bed 7 Private MD: ED Physician Mc Monroy HPI: 11/06 03:14 This 43 yrs old Male presents to ER via Ambulatory with complaints of Chest sp4 Pain. 03:18 43 -year-old male presents with complaint of a chest tightness starting on the left sp4 side yesterday.. Historical: - Allergies: 02:56 No Known Allergies; ss - Home Meds: 02:56 None [Active]; ss - PMHx: 02:56 Bipolar disorder; Depression; ss - PSHx: 02:56 Cholecystectomy; L arm; ss - Immunization history:: Adult Immunizations unknown. - Infectious Disease History:: Denies. - Social history:: Smoking status: Patient reports the use of cigarette tobacco products, smokes one pack cigarettes per day. - Family history:: not pertinent. ROS: 03:18 Constitutional: Negative for fever, chills, and weight loss, Positive chest tightness. sp4 Eyes: Negative for injury, pain, redness, and discharge, 03:18 All other systems are negative, Exam: 03:18 Constitutional: This is a well developed, well nourished patient who is awake, alert, sp4 and in no acute distress. Head/Face: Normocephalic, atraumatic. Eyes: Pupils equal round and reactive to light, extra-ocular motions intact. Lids and lashes normal. Conjunctiva and sclera are not injected. Cornea within normal limits. Periorbital areas with no swelling, redness, or edema. ENT: Nares patent. No nasal discharge, no septal abnormalities noted. Tympanic membranes are normal and external auditory canals are clear. Oropharynx with no redness, swelling, or masses, exudates, or evidence of obstruction, uvula midline. Mucous membranes moist. Neck: Trachea midline, no thyromegaly or masses palpated, and no cervical lymphadenopathy. Supple, full range of motion without nuchal rigidity, or vertebral point tenderness. Chest/axilla: Normal chest wall appearance and motion. Nontender with no deformity. No lesions are appreciated. Cardiovascular: Regular rate and rhythm with a normal S1 and S2. No gallops, murmurs, or rubs. Normal PMI, no JVD. No pulse deficits. Respiratory: Lungs have equal breath sounds bilaterally, clear to auscultation and percussion. No rales, rhonchi or wheezes noted. No increased work of breathing, no retractions or nasal flaring. Abdomen/GI: Soft, with normal bowel sounds. No distension or tympany. No guarding or rebound. No evidence of tenderness throughout. Back: No spinal tenderness. No costovertebral tenderness. Skin: Warm, dry with normal turgor. Normal color with no rashes, no lesions, and no evidence of cellulitis. MS/ Extremity: Pulses equal, no cyanosis. Neurovascular intact. Full, normal range of motion. Neuro: Awake and alert, GCS 15, oriented to person, place, time, and situation. Cranial nerves II-XII grossly intact. Motor strength 5/5 in all extremities. Sensory grossly intact. Psych: Awake, alert, with orientation to person, place and time. Behavior, mood, and affect are within normal limits 04:00 ECG was reviewed by the Attending Physician. EKG at 0302 reveals normal sinus rhythm sp4 rate 89 Vital Signs: 02:54 BP 143 / 100; Pulse 86; Resp 17; Temp 97.8(TE); Pulse Ox 100% on R/A; Weight 77.11 kg; ss Height 5 ft. 9 in. ; Pain 0/10; 03:53 BP 118 / 94; Pulse 83; Resp 17; Pulse Ox 99% ; vc1 02:54 Body Mass Index 25.10 (77.11 kg, 175.26 cm) ss 02:54 Pain Scale: Adult ss Raffi Coma Score: 03:16 Eye Response: spontaneous(4). Motor Response: obeys commands(6). Verbal Response: kd4 oriented(5). Total: 15. 03:18 Eye Response: spontaneous(4). Motor Response: obeys commands(6). Verbal Response: sp4 oriented(5). Total: 15. MDM: 02:50 Patient medically screened. sp4 04:00 HEART Score: History: Slightly Suspicious (0), ECG: Normal (0), Age: < or = 45 years sp4 (0), Risk Factors: No Risk Factors Known (0), Troponin: < or = 1 x Normal Limit (0), Total Score = 0. 04:00 Differential diagnosis: acute myocardial infarction, acute pericarditis, anxiety, sp4 coronary artery disease chest wall pain, congestive heart failure costochondritis, esophagitis. The patient was not given aspirin in the Emergency Department. Aspirin not given, patient refused. Data reviewed: vital signs, nurses notes, lab test result(s), EKG, radiologic studies, plain films. 04:01 ED course: PROCEDURE: XR Chest, 1 View CLINICAL INDICATION: The patient is 43 years old sp4 and is Male; Chest pain. TECHNIQUE: Frontal view of the chest. COMPARISON: XR Chest 08/15/2020. FINDINGS: LUNGS: No discrete focal consolidation. PLEURAL SPACE: No appreciable pleural effusion or pneumothorax. MEDIASTINUM: Normal cardiomediastinal contours, allowing for technique and positioning. BONES/JOINTS: No acute osseous abnormality. IMPRESSION: No acute cardiopulmonary abnormality. . 11/06 02:49 Order name: Basic Metabolic Panel; Complete Time: 03:50 [facility] 11/06 02:49 Order name: CBC with Diff; Complete Time: 03:50 [facility] 11/06 02:49 Order name: LFT's; Complete Time: 03:50 4 11/06 02:49 Order name: Magnesium; Complete Time: 03:50 4 11/06 02:49 Order name: NT PRO-BNP; Complete Time: 03:50 4 11/06 02:49 Order name: PT-INR; Complete Time: 03:50 4 11/06 02:49 Order name: Troponin HS; Complete Time: 03:50 [facility] 11/06 02:50 Order name: Alcohol Level; Complete Time: 03:50 4 11/06 02:50 Order name: Urine Drug Screen; Complete Time: 03:50 4 11/06 02:49 Order name: XRAY Chest (1 view) [facility] 11/06 02:49 Order name: EKG; Complete Time: 02:50 4 11/06 02:49 Order name: Cardiac monitoring; Complete Time: 03:12 4 11/06 02:49 Order name: EKG - Nurse/Tech; Complete Time: 03:12 4 11/06 02:49 Order name: IV Saline Lock; Complete Time: 03:12 [facility] 11/06 02:49 Order name: Labs collected and sent; Complete Time: 03:12 sp4 11/06 02:49 Order name: O2 Per Protocol; Complete Time: 03:12 sp4 11/06 02:49 Order name: O2 Sat Monitoring; Complete Time: 03:12 sp4 EC:00 Rate is 89 beats/min. Rhythm is regular, Normal Sinus Rhythm. QRS [place] is Normal. CT sp4 interval is normal. QRS interval is normal. QT interval is normal. No Q waves. T waves are Normal. No ST changes noted. Clinical impression: Normal ECG. Interpreted by me. Reviewed by me. Administered Medications: No medications were administered Disposition Summary: 11/07/23 04:03 Discharge Ordered Notes: Location: Home sp4 Problem: new sp4 Symptoms: have improved sp4 Condition: Stable sp4 Diagnosis - Acute Chest Discomfort , Methamphetamine Use Disoder sp4 Followup: sp4 - With: Private Physician - When: 7 - 10 days - Reason: Recheck today's complaints Discharge Instructions: - Discharge Summary Sheet sp4 - Methamphetamines Use Disorder sp4 Forms: - Patient Portal Instructions sp4 Signatures: Dispatcher [employer] EDMS Jo-Ann Neville, RN RN ss Mc Monroy MD MD sp4 Mamta Wang RN RN kd4 Corrections: (The following items were deleted from the chart) 02:50 02:50 ETHANOL+C.LAB.BRZ ordered. EDMS EDMS 02:50 02:50 URINE DRUG SCREEN+UC.LAB.BRZ ordered. EDMS EDMS
[2023-11-07 04:18] VITALS: TEMP 97.8
[2023-11-07 04:20] VITALS: BP 118/94; O2SAT 99
--- NOTE | 2023-11-07 20:18 | RAD REPORT ---
EXAM DESCRIPTION: RAD - Chest Single View - 11/07/2023 3:30 am CLINICAL HISTORY: The patient is 43 years old and is Male; Chest pain. TECHNIQUE: Frontal view of the chest. COMPARISON: XR Chest 08/15/2020. FINDINGS: LUNGS: No discrete focal consolidation. PLEURAL SPACE: No appreciable pleural effusion or pneumothorax. MEDIASTINUM: Normal cardiomediastinal contours, allowing for technique and positioning. BONES/JOINTS: No acute osseous abnormality. IMPRESSION: No acute cardiopulmonary abnormality. Electronically signed by: Thony Orellana MD 11/07/2023 03:56 AM CDT RP Due to temporary technical issues with the PACS/Fluency reporting system, reports are being signed by the in house radiologists without review as a courtesy to insure prompt reporting. The interpreting radiologist is fully responsible for the content of the report.
--- NOTE | 2023-11-09 17:06 | EKG ---
Test Date: 2023-11-07 Test Time: 03:02:25 Mobility Specialist: XIANG MEASUREMENT RESULTS: Intervals: Rate: 89 MN: 168 QRSD: 94 QT: 368 QTc: 447 [place]: P: 69 MN: 168 QRS: 46 T: 56 INTERPRETIVE STATEMENTS: Normal sinus rhythm Normal ECG Compared to ECG 01/28/2018 19:13:08 No significant changes Electronically Signed On 11-09-23 17:00:34 CDT by Shankar Shafer
== END 2023-11-07 04:09 | disposition home or self-care (01) ==
LOC: ER 02:46
DX: R07.89 Other chest pain (principal); F15.90 Other stimulant use, unspecified, uncomplicated; F31.9 Bipolar disorder, unspecified; F17.210 Nicotine dependence, cigarettes, uncomplicated
CPT/HCPCS: 36415; 71045; 80048; 80076; 80307; 82077; 83735; 83880; 84484; 85025; 85610; 93005; 99284